=== PATIENT | female | born 1985 | race Caucasian/White ===

== ENCOUNTER 2019-01-09 13:53 | Emergency (ER) | payer SELFPAY ==
[~2019-01-09] VITALS: Ht 180.3 cm; Wt 74.8 kg
--- NOTE | 2019-01-09 14:50 | NUR ---
PATIENT TO ROOM 8
[2019-01-09] MEDS: ONDANSETRON HCL INJ 2MG/ML 2ML 2 MG/ML VIAL IV NR ×2 (15:00→15:03)
[2019-01-09] MEDS: SODIUM CHLORIDE 0.9% 1000ML 1,000 ML IV STA ×2 (15:00→15:03)
[2019-01-09 15:15] LABS: BASOPHILS % 0.5 % (0.0-1.0); EOSINOPHILS # (AUTO) 0.1 (0.0-0.4); EOSINOPHILS % 1.9 % (0.0-6.0); HEMOGLOBIN 13.1 g/dL (12.0-16.0); LYMPHOCYTES # (AUTO) 2.8 (1.0-3.2); LYMPHOCYTES % 37.2 % (18.0-39.1); MEAN CORPUSCULAR HEMOGLOBIN 30.9 pg (28-32); MEAN CORPUSCULAR HGB CONC 33.6 g/dL (31-35); MONOCYTES # (AUTO) 0.5 (0.2-0.8); MONOCYTES % 6.7 % (4.4-11.3); NEUTROPHILS % 53.3 % (38.7-80.0); PLATELET COUNT 290 x10e3/uL (140-360); RED BLOOD COUNT 4.24 x10e6/uL (3.6-5.1); RED CELL DISTRIBUTION WIDTH 13.4 % (11.7-14.4)
[2019-01-09 15:16] LABS: INR 0.96; PROTHROMBIN TIME 13.3 seconds (11.9-14.5)
[2019-01-09 15:17] LABS: PARTIAL THROMBOPLASTIN TIME 25.5 seconds (23.8-35.5)
--- NOTE | 2019-01-09 15:18 | Diagnostic Imaging Report ---
Examination: Single AP view of the chest. COMPARISON: None. INDICATION: Cough DISCUSSION: Lines/tubes: None. Lungs: The lungs are well inflated and clear. There is no evidence of pneumonia or pulmonary edema. Pleura: There is no pleural effusion or pneumothorax. Heart and mediastinum: The heart and the mediastinum are unremarkable. Bones and soft tissues: No acute bony abnormalities. IMPRESSION: 1. No acute cardiopulmonary abnormalities. Signed by: Dr. Rodo Ac M.D. on 01/09/2019 3:15 PM
[2019-01-09] MEDS ORDERED: SODIUM CHLORIDE 0.9% 1000ML 1,000 ML IV STA (15:24)
[2019-01-09 15:26] LABS: ALANINE AMINOTRANSFERASE 16 IU/L (0-55); ALBUMIN/GLOBULIN RATIO 1.2 (0.8-2.0); ALKALINE PHOSPHATASE 63 IU/L (40-150); ANION GAP 15.4 mmol/L (8-16); BLOOD UREA NITROGEN 13 mg/dL (7-26); BUN/CREATININE RATIO 16 (6-25); CALCIUM 8.6 mg/dL (8.4-10.2); CARBON DIOXIDE 25 mmol/L (22-29); CHLORIDE 104 mmol/L (98-107); CREATINE KINASE 154 IU/L (29-168); CREATININE, SERUM 0.79 mg/dL (0.57-1.11); EST GLOMERULAR FILTRATION RATE > 60 ML/MIN (60-); MAGNESIUM 2.5 MG/DL (1.3-2.1); POTASSIUM 3.4 mmol/L (3.5-5.1); SODIUM 141 mmol/L (136-145)
[2019-01-09 15:34] LABS: GLUCOSE 55 mg/dL (74-118)
[2019-01-09] MEDS ORDERED: DEXTROSE 50% SYRINGE 50 ML IV ONE (15:40)
--- NOTE | 2019-01-09 15:41 | NUR ---
BLOOD SUGAR---56; D50 PUSHED. AWARE
[2019-01-09] MEDS ORDERED: DEXTROSE 50% SYRINGE 50 ML IV STA (15:47)
[2019-01-09] MEDS ORDERED: VANCOMYCIN 1GM/NS 250 ML 250 ML IV SCH (16:00)
[2019-01-09] MEDS ORDERED: DEXTROSE 50% SYRINGE 50 ML IV PRN (16:00)
[2019-01-09] MEDS ORDERED: CEFEPIME 2 GM/NS 0.9% 100 ML 100 ML IV SCH (16:00)
[2019-01-09 16:07] LABS: FREE THYROXINE INDEX 2.8671 (1.4-3.8); THYROID STIMULATING HORMONE 1.865 uIU/mL (0.350-4.940)
[2019-01-09 16:17] LABS: ACETAMINOPHEN < 3 ug/mL (10-30); SALICYLATE < 5.0 mg/dL (0-30)
[2019-01-09] MEDS ORDERED: MULTIVITAMINS- 12 INJECTION 10 ML, FOLIC ACID MDV 5 MG, THIAMINE HCL INJ 100 MG in SODI... IV ONE (16:30)
[2019-01-09] MEDS ORDERED: LORAZEPAM INJ 2 MG/ML VIAL IV NR (16:30)
[2019-01-09 16:33] LABS: INFLUENZAE A&B ANTIGEN (RAPID) NEGATIVE (NEGATIVE)
[2019-01-09 16:34] LABS: STREPTOCOCCUS GRP A ANTIGEN NEGATIVE (NEGATIVE)
[2019-01-09 16:51] LABS: CLARITY,URINE CLEAR (CLEAR); COLOR,URINE YELLOW (YELLOW); LEUKOCYTE ESTERASE ,URINE NEGATIVE (NEGATIVE); NITRITE,URINE NEGATIVE (NEGATIVE)
[2019-01-09 16:53] LABS: PROTEIN,URINE DIPSTICK NEGATIVE (NEGATIVE)
[2019-01-09 16:54] LABS: BILIRUBIN,URINE NEGATIVE (NEGATIVE); KETONES,URINE NEGATIVE (NEGATIVE); URINE UROBILINOGEN 0.2 mg/dL (0.2 - 1)
[2019-01-09 16:55] LABS: BACTERIA,URINE RARE /HPF; EPITHELIAL CELLS,URINE FEW /LPF
[2019-01-09 16:59] LABS: PREGNANCY TEST, URINE NEGATIVE (NEGATIVE)
[2019-01-09 17:04] LABS: AMPHETAMINES SCREEN,URINE POSITIVE (NEGATIVE); BENZODIAZEPINES SCREEN,URINE POSITIVE (NEGATIVE); PHENCYCLIDINE SCREEN,URINE N (NEGATIVE)
[2019-01-09] MEDS ORDERED: CEFTRIAXONE SOD 1 GM/NS 50 ML 50 ML IV ONE (17:45)
[2019-01-09 20:09] VITALS: BP 130/99
== END 2019-01-09 20:28 | disposition home or self-care (01) ==
LOC: ER 13:53
DX: F19.10 Other psychoactive substance abuse, uncomplicated (principal); N30.91 Cystitis, unspecified with hematuria; F33.1 Major depressive disorder, recurrent, moderate; I10 Essential (primary) hypertension; R00.0 Tachycardia, unspecified; F17.200 Nicotine dependence, unspecified, uncomplicated
CPT/HCPCS: 36415; 71045; 80053; 80307; 80320; 80329 ×2; 81001; 81025; 82550; 82553; 82948; 83518; 83605; 83735; 84436; 84443; 84479; 84484; 85025; 85379; 85610; 85730; 87040; 87070; 87086; 87400; 93005; 99284; J0696; J2405; J3411; J7030; J7799